=== PATIENT | female | born 1995 | race Caucasian/White ===

== ENCOUNTER 2023-04-25 10:07 | Outpatient (CLI) | payer OTHER ==
--- NOTE | 2023-04-25 10:54 | XRAY Report ---
PROCEDURE: Chest 2 View X-Ray INDICATIONS: BRONCHIOLITIS DUE TO RSV TECHNIQUE: 2 views of the chest were acquired. COMPARISON: None. FINDINGS: Surgical changes and devices: None. Lungs and pleura: No pleural effusions or pneumothorax. Lungs are clear. Mediastinum: Mediastinal contours appear normal. Heart size is normal. Bones and chest wall: No suspicious bony lesions. Overlying soft tissues appear unremarkable. IMPRESSION: No acute cardiopulmonary process. Reviewed by: Stahya Thompson MD on 04/25/2023 10:52 AM PDT Approved by: Sathya Thompson MD on 04/25/2023 10:52 AM PDT Station ID: [id number]
== END 2023-04-25 10:08 | disposition home or self-care (01) ==
LOC: DI 10:07
PROVIDERS: ATTEND Family Medicine
DX: J21.0 Acute bronchiolitis due to respiratory syncytial virus (principal)

== ENCOUNTER 2023-04-27 23:01 | Emergency (ER) | payer OTHER ==
[2023-04-27 23:08] VITALS: O2SAT 96
--- NOTE | 2023-04-27 23:13 | ED Physician Documentation ---
PD HPI CHEST PAIN - Stated complaint Stated Complaint: BURNING CHEST PX - Chief complaint Chief Complaint: Resp - History obtained from History obtained from: Patient - Additional information Additional information: HPI from patient.l Patient was evaluated in walk-in clinic on Sunday (six days ago) for URI symptoms, had negative COVID swab result there but was positive for RSV. Returned 2 days ago due to worsening cough, dyspnea. She was prescribed a steroid taper, benzonatate, and albuterol MDI. She started both of these mediations yesterday, no noticeable symptoms improvement and presents tonight due to additional symptoms over past 12-24 hours: midline chest burning pain, associated with nausea but no vomiting. Pain is worse with lying supine. No apparent ameliorating factors. Has not taken temperature at home but has been having chills/sweats. Also has been taking Dayquil and Nyquil along with mucinex. Continues to have dyspnea, cough. She also had CXR 2 days ago, unremarkable results per patient. Review of Systems Constitutional: reports: Chills, Sweats Cardiac: reports: Chest pain / pressure (burning). denies: Palpitations, Pedal edema, Calf pain Respiratory: reports: Dyspnea, Cough. denies: Hemoptysis, Wheezing GI: reports: Nausea. denies: Abdominal Pain, Vomiting PD PAST MEDICAL HISTORY - Past Medical History Past Medical History: No - Present Medications Home Medications: Ambulatory Orders Medication Instructions Recorded Confirmed Lidocaine Viscous 2% [Xylocaine 5 - 10 ml MM Q4H PRN #100 ml 04/28/23 Viscous 2%] guaiFENesin/CODEINE [Robitussin AC] 5 - 10 ml PO Q6H PRN #100 ml 04/28/23 - Allergies Allergies/Adverse Reactions: Allergies Allergy/AdvReac Type Severity Reaction Status Date / Time No Known Drug Allergies Allergy Verified 04/27/23 23:04 PD ED PE NORMAL - Vitals Vital signs reviewed: Yes - General General: Alert and oriented X 3, No acute distress, Well developed/nourished - HEENT HEENT: Moist mucous membranes - Neck Neck: Supple, no meningeal sign - Cardiac Cardiac: RRR, No murmur, No gallop, No rub - Respiratory Respiratory: No respiratory distress, Clear bilaterally - Abdomen Abdomen: Soft, Non tender - Extremities Extremities: No edema Results - Vitals Vitals: Oxygen O2 Source Room air PD Medical Decision Making - ED course Complexity details: considered differential, d/w patient ED course: Lungs are CTA bilaterally, 96-98% pulse ox on room air, speaking in full sentences. Her chest burning is s/o GERD and timing is with starting PO steroid taper. She is given maalox/viscous lidocaine as well as PO protonix. On reevaluation, she says she feels improvement after these interventions. I advised her to stop the steroid, as I suspect this is causing reflux. I am e- prescribing viscous lidocaine as well as robitussin AC, with dose of robitussin AC given to take home at time of ED discharge. Work note is provided. Return precautions discussed. No testing undertaken on this ED visit. I am prescribing a short course of short-acting opioid pain medication for this patient. 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 I have discussed that the opioids are for short term therapy only, and will not be refilled from the ED. Departure - Departure Disposition: Home, Self Care Clinical Impression: Viral URI Dyspnea Qualifiers: Dyspnea type: shortness of breath Qualified Code(s): R06.02 - Shortness of breath Condition: Good Instructions: ED Upper Resp Infec No Abx Tx, ED Dyspnea Shortness of Breath Prescriptions: guaiFENesin/CODEINE [Robitussin AC] 5 - 10 ml PO Q6H PRN #100 ml PRN Reason: Cough Lidocaine Viscous 2% [Xylocaine Viscous 2%] 5 - 10 ml MM Q4H PRN #100 ml PRN Reason: Chest Pain Comments: A prescription for a codeine-containing cough syrup has been electronically submitted to the [facility] pharmacy in [place]. I have also submitted a prescription for the lidocaine (numbing agent that you were given in the emergency department tonight); as we discussed, this is best taken with liquid Maalox to help disguise the taste and viscosity of the lidocaine which can be unpleasant alone. Because your symptoms are suggestive of heartburn/reflux, I also recommend that you take an acid-blocking medication such as prilosec or nexium, once per day for 2 weeks. No tests were performed tonight, as your lungs are clear on tonight's exam, and your vital signs are all stable including your oxygen level. This is also considering your recent positive RSV test and the recent, unremarkable chest xray. However, you should certainly return to the emergency department if your symptoms worsen in any way, or if you develop new/concerning signs/symptoms (such as worsening shortness of breath, worsening cough, coughing up blood, worsening chest pain). I am prescribing a short course of narcotic pain medication for you. These are potentially dangerous and addictive medications that should be used carefully. These medications may constipate you. Take an bval-rum-zifgtpe stool softener (docusate) twice daily with plenty of water while taking these medications. If you go 24 hours without a bowel movement, take simx-fsl-pcdlafk miralax, per package instructions. Do not drink or drive while taking these medications. If you received narcotic or sedating medications while in the emergency department, do not drive for 24 hours. Store this medication in a safe, secure place and out of reach of children. It is a violation of federal law to give or sell this medication to another person or to use in a manner other than prescribed. The ED will not refill narcotic prescriptions, including prescriptions lost or stolen. To dispose of unwanted medications: 1. [facility] at [address] in [place] has a medication drop box. They accept prescription medications (in pill form) Sunday through Sunday 9:00 a.m. to 5:00 p.m. 2. The [facility] [employer] accepts prescription medications (in pill form only) for disposal year round. Call for more information. 3. Contact the [facility] for the next [facility] sponsored prescription drug collection event. , [phone], or [phone]; Forms: PCP List, Activity restrictions Discharge Date/Time: 04/28/23 01:33
[2023-04-28] MEDS ORDERED: PANTOPRAZOLE 40 MG TABLET PO STA (00:10)
[2023-04-28] MEDS ORDERED: MAG HYDROX/AL HYDROX/SIMETH 30 ML UDC PO STA (00:10)
[2023-04-28] MEDS ORDERED: LIDOCAINE VISCOUS 2% 15 ML ORAL SYRINGE MM STA (00:10)
[2023-04-28] MEDS ORDERED: ONDANSETRON ODT 4 MG Prepack 2 TL PRN (01:02)
[2023-04-28] MEDS ORDERED: guaiFENesin/CODEINE 5 ML UDC PO STA ×2 (01:02→01:22)
[2023-04-28 01:31] VITALS: BP 120/83
== END 2023-04-28 01:33 | disposition home or self-care (01) ==
LOC: ED 23:01
DX: J06.9 Acute upper respiratory infection, unspecified (principal); R06.02 Shortness of breath
CPT/HCPCS: 99282; 99283; A9270